=== PATIENT | female | born 1995 | race Caucasian/White ===

== ENCOUNTER 2018-01-29 14:07 | Emergency (ER) | payer OTHER ==
[~2018-01-29] VITALS: Ht 165.1 cm; Wt 49.9 kg
== END 2018-01-29 16:26 | disposition home or self-care (01) ==
LOC: ER 14:07
DX: B34.9 Viral infection, unspecified (principal)

== ENCOUNTER 2018-05-27 03:20 | Emergency (ER) | payer OTHER ==
[~2018-05-27] VITALS: Ht 165.1 cm; Wt 56.2 kg
[2018-05-27] MEDS ORDERED: PRENATABS FA T1 EACH (03:41)
== END 2018-05-27 04:31 | disposition home or self-care (01) ==
LOC: ER 03:20
DX: G44.209 Tension-type headache, unspecified, not intractable (principal); R11.0 Nausea

== ENCOUNTER 2024-12-23 09:24 | Emergency (ER) | payer OTHER ==
[~2024-12-23] VITALS: Ht 165.1 cm; Wt 47.6 kg
[~2024-12-23 09:24] MED LIST: PRENATABS FA T1 EACH
[2024-12-23] MEDS ORDERED: KETOROLAC TROMETHAMINE 60 MG VIAL IM ONE ×2 (15:45→15:59)
[2024-12-23] MEDS ORDERED: PERCOCET 10-321 EACH PO (16:22)
== END 2024-12-23 16:25 | disposition home or self-care (01) ==
LOC: ER 09:24
DX: M25.561 Pain in right knee (principal); V00.131A Fall from skateboard, initial encounter; Y93.I9 Activity, other involving external motion; Y92.89 Other specified places as the place of occurrence of the external cause; N90.89 Other specified noninflammatory disorders of vulva and perineum